=== PATIENT | female | born 1985 | race Caucasian/White ===

== ENCOUNTER 2017-03-14 15:07 | Emergency (ER) | payer MEDICAID, OTHER ==
[~2017-03-14] VITALS: Ht 160 cm; Wt 64.0 kg
[~2017-03-14 15:07] MED LIST: NO HOME MEDS
[2017-03-14] MEDS ORDERED: normal saline 1000ML IV soln IVB ONE (15:40)
[2017-03-14 16:08] LABS: BASOPHILS # (AUTO) 0.1 X10'3 (0-0.2); BASOPHILS % (AUTO) 0.4 % (0-1); EOSINOPHILS # (AUTO) 0.4 X10'3 (0-0.9); EOSINOPHILS % (AUTO) 2.1 % (0-6); HEMATOCRIT 36.7 % (35.0-45.0); HEMOGLOBIN 12.4 g/dl (12.0-16.0); LYMPHOCYTES # (AUTO) 2.1 X10'3 (1.1-4.8); MEAN CORPUSCULAR HEMOGLOBIN 30.5 PG (27.0-31.0); MEAN CORPUSCULAR HGB CONC 33.8 % (33.0-36.5); MEAN CORPUSCULAR VOLUME 90.4 FL (78-98); MEAN PLATELET VOLUME 7.7 FL (7.4-10.4); MONOCYTES # (AUTO) 1.1 X10'3 (0-0.9); MONOCYTES % (AUTO) 5.6 % (2-12); NEUTROPHILS # (AUTO) 15.4 X10'3 (1.8-7.7); NEUTROPHILS % (AUTO) 80.9 % (42-75); PLATELET COUNT 302 X10'3 (140-440); RED BLOOD COUNT 4.06 X10'6 (4.20-5.60); RED CELL DISTRIBUTION WIDTH 13.3 % (11.5-14.5)
[2017-03-14] MEDS ORDERED: normal saline 1000ML IV soln IV ONE (16:20)
[2017-03-14 16:22] LABS: ALANINE AMINOTRANSFERASE 25 U/L (12-78); ALBUMIN 3.6 G/DL (3.4-5.0); ALKALINE PHOSPHATASE 79 IU/L (46-116); ANION GAP 9 (8-16); ASPARTATE AMINO TRANSFERASE 18 U/L (10-37); BILIRUBIN,TOTAL 0.1 MG/DL (0.1-1.0); BLOOD UREA NITROGEN 14 MG/DL (7-18); CALCIUM 9.3 MG/DL (8.5-10.1); CHLORIDE 105 MMOL/L (99-107); GLUCOSE 124 MG/DL (70-104); LIPASE 86 U/L (73-393); POTASSIUM 3.9 MMOL/L (3.5-5.1); SODIUM 139 MMOL/L (135-145); TOTAL CARBON DIOXIDE 25.4 MMOL/L (24-32); TOTAL PROTEIN 7.2 G/DL (6.4-8.2); eGFR 63 ML/MIN
[2017-03-14 16:40] LABS: PLATELET ESTIMATE NORMAL; TOTAL CELLS COUNTED 100
[2017-03-14 17:01] LABS: URINE HCG POSITIVE (NEG)
[2017-03-14 17:02] LABS: CLARITY,URINE Clear (Clear); COLOR,URINE Yellow (Yellow); GLUCOSE, URINE Negative (Neg); KETONES,URINE Negative (Neg); LEUKOCYTE ESTERASE ,URINE Trace (Neg); NITRITES, URINE Positive (Neg); OCCULT BLOOD,URINE Trace (Neg); PROTEIN,URINE Negative (Neg)
[2017-03-14 17:07] LABS: UA COLLECTION TYPE CLN CATCH MIDSTREAM
[2017-03-14 17:10] LABS: BACTERIA,URINE 3+ /HPF (Neg); MUCUS STRANDS FEW /LPF (Neg); RBC,URINE 0-2 /HPF (0-2); SQUAMOUS EPITHELIAL CELL,UR MANY /LPF (FEW); URINE AMPHETAMINE SCREEN POSITIVE (Neg); URINE BARBITUATE SCREEN NEGATIVE (Neg); URINE BENZODIAZEPINES SCREEN NEGATIVE (Neg); URINE CANNABINOID SCREEN POSITIVE (Neg); URINE COCAINE SCREEN NEGATIVE (Neg); URINE METHADONE SCREEN NEGATIVE (Neg); URINE OPIATE SCREEN NEGATIVE (Neg); URINE PHENCYCLIDINE SCREEN NEGATIVE (Neg); WBC,URINE 0-4 /HPF (0-4)
[2017-03-14 19:08] VITALS: BP 104/72
== END 2017-03-14 20:03 | disposition short-term general hospital (02) ==
LOC: ER 15:07
DX: R10.31 Right lower quadrant pain (principal); F12.10 Cannabis abuse, uncomplicated; F15.10 Other stimulant abuse, uncomplicated; R10.32 Left lower quadrant pain; Z33.1 Pregnant state, incidental
CPT/HCPCS: 36415; 71010; 76817; 80053; 80305; 81001; 81025; 83690; 84702; 85025; 86900; 86901; 96360; 96361; 99285; J7030

== ENCOUNTER 2019-03-26 08:37 | Emergency (ER) | payer MEDICAID, OTHER ==
[~2019-03-26] VITALS: Ht 162.6 cm; Wt 76.0 kg
[2019-03-26 09:08] VITALS: BP 175/103
[2019-03-26] MEDS ORDERED: PENI500T2 PO (09:58)
== END 2019-03-26 10:11 | disposition home or self-care (01) ==
LOC: ER 08:38
DX: K08.89 Other specified disorders of teeth and supporting structures (principal); F12.90 Cannabis use, unspecified, uncomplicated; F15.90 Other stimulant use, unspecified, uncomplicated; F10.99 Alcohol use, unspecified with unspecified alcohol-induced disorder; Z79.899 Other long term (current) drug therapy; Y90.9 Presence of alcohol in blood, level not specified
CPT/HCPCS: 99283

== ENCOUNTER 2024-01-22 01:11 | Emergency (ER) | payer MEDICAID, OTHER ==
[~2024-01-22] VITALS: Ht 160 cm; Wt 83.9 kg
[2024-01-22 02:29] VITALS: BP 154/99; PULSE 98; RESP 18; TEMP 97.9; O2SAT 96
== END 2024-01-22 02:30 | disposition home or self-care (01) ==
LOC: ER 01:12
DX: S02.2XXA Fracture of nasal bones, initial encounter for closed fracture (principal); F12.90 Cannabis use, unspecified, uncomplicated; F15.90 Other stimulant use, unspecified, uncomplicated; Y08.89XA Assault by other specified means, initial encounter; Y93.89 Activity, other specified; Y92.89 Other specified places as the place of occurrence of the external cause; Y99.8 Other external cause status
CPT/HCPCS: 21315; 99284

== ENCOUNTER 2024-07-19 18:25 | Emergency (ER) | payer SELFPAY ==
[~2024-07-19] VITALS: Ht 160 cm; Wt 73.6 kg
[2024-07-19 18:57] LABS: BASOPHILS # (AUTO) 0.1 X10'3 (0-0.2); EOSINOPHILS # (AUTO) 0.2 X10'3 (0-0.9); EOSINOPHILS % (AUTO) 2.4 % (0-6); HEMOGLOBIN 13.8 g/dl (12.0-16.0); LYMPHOCYTES # (AUTO) 1.8 X10'3 (1.1-4.8); LYMPHOCYTES % (AUTO) 18.7 % (21-51); MEAN CORPUSCULAR HGB CONC 33.7 g/dL (33.0-36.5); MEAN CORPUSCULAR VOLUME 88.9 FL (78-98); MEAN PLATELET VOLUME 7.6 FL (7.4-10.4); MONOCYTES # (AUTO) 0.8 X10'3 (0-0.9); MONOCYTES % (AUTO) 7.8 % (2-12); NEUTROPHILS # (AUTO) 6.7 X10'3 (1.8-7.7); NEUTROPHILS % (AUTO) 70.1 % (42-75); PLATELET COUNT 328 X10'3 (140-440); RED BLOOD COUNT 4.62 X10'6 (4.20-5.60); RED CELL DISTRIBUTION WIDTH 13.8 % (11.5-14.5); WHITE BLOOD COUNT 9.6 X10'3 (4.5-11.0)
[2024-07-19 19:10] LABS: ALANINE AMINOTRANSFERASE 26 U/L (12-78); ALBUMIN 3.5 G/DL (3.4-5.0); ALKALINE PHOSPHATASE 103 IU/L (46-116); ANION GAP 6 (8-16); ASPARTATE AMINO TRANSFERASE 13 U/L (10-37); BILIRUBIN,TOTAL 0.2 MG/DL (0.1-1.0); BLOOD UREA NITROGEN 15 MG/DL (7-18); BUN/CREATININE RATIO 17.6 (10.0-20.0); CALCIUM 9.1 MG/DL (8.5-10.1); CHLORIDE 105 MMOL/L (99-107); CREATININE 0.85 MG/DL (0.40-0.90); GLUCOSE 92 MG/DL (70-104); LIPASE 30 U/L (16-77); POTASSIUM 4.1 MMOL/L (3.5-5.1); SODIUM 138 MMOL/L (135-145); TOTAL CARBON DIOXIDE 26.9 MMOL/L (24-32); TOTAL PROTEIN 7.1 G/DL (6.4-8.2); eCRCL 72 ML/MIN; eGFR 74 ML/MIN
[2024-07-19] MEDS: OLANZapine **IM** 10 mg inj. IM ONE ×2 (19:31→20:39)
[2024-07-19] MEDS: ketorolac trometh 15mg/ml vial 15 MG/ML ML IM ONE (20:39)
[2024-07-19 21:56] LABS: HCG SERUM QL NEGATIVE
[2024-07-19] MEDS ORDERED: iohexol 300mg/ml 100ml inj. ONE (22:01)
[2024-07-19 23:20] VITALS: TEMP 97.6
[2024-07-20 00:41] LABS: BILIRUBIN,URINE NEGATIVE (Neg); CLARITY,URINE CLEAR (Clear); COLOR,URINE YELLOW (Yellow); GLUCOSE, URINE NEGATIVE (Neg); KETONES,URINE NEGATIVE (Neg); LEUKOCYTE ESTERASE ,URINE NEGATIVE (Neg); NITRITES, URINE NEGATIVE (Neg); OCCULT BLOOD,URINE NEGATIVE (Neg); PROTEIN,URINE NEGATIVE (Neg); UROBILINOGEN,URINE 0.2 E.U/dL (0.2-1.0)
[2024-07-20 00:56] LABS: UA COLLECTION TYPE CLN CATCH MIDSTREAM
[2024-07-20] MEDS ORDERED: AMOX-580 PO (03:02)
[2024-07-20 03:13] VITALS: BP 122/77; PULSE 66; RESP 14; O2SAT 97
[2024-07-20] MEDS: amox tr/potassium clavulanate 875/125mg TAB PO ONE (04:08)
== END 2024-07-20 04:29 | disposition home or self-care (01) ==
LOC: ER 18:25
DX: K80.12 Calculus of gallbladder with acute and chronic cholecystitis without obstruction (principal); G89.29 Other chronic pain; M54.9 Dorsalgia, unspecified; F12.90 Cannabis use, unspecified, uncomplicated; F15.90 Other stimulant use, unspecified, uncomplicated; Z72.89 Other problems related to lifestyle
CPT/HCPCS: 36415; 74177; 76700; 80053; 81003; 83690; 84703; 85025; 96372; 99285; J1885; J3490; Q9967

== ENCOUNTER 2024-08-15 13:14 | Emergency (ER) | payer SELFPAY ==
[~2024-08-15] VITALS: Ht 160 cm; Wt 80.0 kg
[2024-08-15 13:28] VITALS: BP 145/97; PULSE 89; TEMP 97.7; O2SAT 100
[2024-08-15] MEDS ORDERED: ondansetron/PF 4mg/2ml inj IV ONE (14:25)
[2024-08-15] MEDS ORDERED: ketorolac trometh 15mg/ml vial 15 MG/ML ML IV ONE (14:25)
--- NOTE | 2024-08-15 14:30 | Physician Documentation ---
History of Present Illness Chief Complaint: Abdominal Pain Stated Complaint: STOMACH PAIN Time Seen by MD: 13:53 Primary Medical Doctor: None Mode of Arrival: Ambulatory HPI This is a 39-year-old female who presents with right upper quadrant abdominal pain, patient was diagnosed with cholelithiasis on July 19 and was to follow up with a surgeon though has not had a chance to do so yet, patient reports that after being seen in July her pain went away until this morning when it returned. Patient reports no fever or chills and no vomiting or diarrhea however reports feeling of nausea. She reports the pain is worse after eating otherwise no other aggravating or alleviating factors. Medication Reconciliation Allergies: Coded Allergies: No Known Allergies (Unverified , 07/19/24) Miscellaneous Medications Home Med List (No Home Medications), (Reported) Past Medical History Past Medical History: No Pertinent History Past Surgical History: no surgical history Alcohol Use: Occasionally Drug Use: marijuana, methamphetamine Lives In: Home Review of Systems ROS Right upper quadrant pain as stated above in the HPI, otherwise all systems are reviewed and negative. Physical Exam Vital Signs: Temperature: 97.7, Source: Oral, Heart Rate: 89, Respiratory Rate: 15, BP: 145/97, Pulse Oximetry: 100, Weight: 80.000 Physical Exam VITALS: Reviewed and as above. GENERAL: Alert, nontoxic appearing, no apparent distress. RESPIRATORY: No increased work of breathing, no respiratory distress, speaking in full clear sentences. Lung sounds clear in all alvarenga CV: Regular rate and rhythm no murmur GI: Right upper quadrant and tenderness to palpation, other quadrants nontender to palpation, no rebound, no guarding, no ecchymosis Progress Results/Orders Results/Orders Vital Signs 08/15/24 08/15/24 13:28 13:47 Temp 97.7 Pulse 89 Resp 16 15 B/P (MAP) 145/97 Pulse Ox 100 Medical Decision Making Findings This 39-year-old female who was recently diagnosed with cholelithiasis presented with one day of increased right upper quadrant abdominal pain after a period of no pain following her cholelithiasis diagnosis, patient has been instructed to follow up with a surgeon outpatient though has not had a chance to make this appointment yet. Patient had eaten just prior to arrival therefore there was a delay in obtaining ultrasound for evaluation of the gallbladder. Patient was quite painful appearing though nontoxic, patient was medicated for pain and labs drawn, after lab draw patient was requesting to leave due to having patient responsibilities including dogs at home. Discussed with patient the importance of staying for the remainder of her workup and lab resolves as well physical exam is relatively benign and vital signs were stable we can not fully rule out more serious illness. After this discussion the patient did sign out against medical advice. Differential Dx:Considerations: Include: Appendicitis, Cholangitis, Cholelithasis, Gastritis/PUD, Gastroenteritis, Pancreatitis, Urolithiasis, Other (Cholecystitis) Departure Disposition: LEFT AGAINST MEDICAL ADVICE Impression: Primary Impression: Abdominal pain Qualified Codes: R10.11 - Right upper quadrant pain Condition: Guarded Referrals: NO PRIMARY CARE PROVIDER (PCP) Signature Scribe Signature: No scribe Attestation: The note accurately reflects work and decisions made by me.CALEB Villatoro 08/16/24 03:34 RADHA CARMONA August 15, 2024 14:30
[2024-08-15] MEDS: ondansetron 4mg rapidly disintigrating tab PO ONE (15:09)
[2024-08-15 15:10] LABS: BASOPHILS % (AUTO) 0.5 % (0-1); EOSINOPHILS # (AUTO) 0.1 X10'3 (0-0.9); EOSINOPHILS % (AUTO) 1.5 % (0-6); HEMATOCRIT 42.4 % (35.0-45.0); HEMOGLOBIN 14.2 g/dl (12.0-16.0); LYMPHOCYTES # (AUTO) 1.6 X10'3 (1.1-4.8); LYMPHOCYTES % (AUTO) 15.6 % (21-51); MEAN CORPUSCULAR HEMOGLOBIN 29.7 PG (27.0-31.0); MEAN CORPUSCULAR HGB CONC 33.5 g/dL (33.0-36.5); MEAN CORPUSCULAR VOLUME 88.5 FL (78-98); MEAN PLATELET VOLUME 7.8 FL (7.4-10.4); MONOCYTES # (AUTO) 0.7 X10'3 (0-0.9); MONOCYTES % (AUTO) 7.3 % (2-12); NEUTROPHILS # (AUTO) 7.6 X10'3 (1.8-7.7); NEUTROPHILS % (AUTO) 75.1 % (42-75); PLATELET COUNT 284 X10'3 (140-440); RED BLOOD COUNT 4.79 X10'6 (4.20-5.60); RED CELL DISTRIBUTION WIDTH 13.7 % (11.5-14.5); WHITE BLOOD COUNT 10.1 X10'3 (4.5-11.0)
[2024-08-15 15:11] VITALS: RESP 15
[2024-08-15] MEDS: ketorolac trometh 15mg/ml vial 15 MG/ML ML IM ONE (15:11)
[2024-08-15 15:20] LABS: ALANINE AMINOTRANSFERASE 29 U/L (12-78); ALBUMIN 3.5 G/DL (3.4-5.0); ALKALINE PHOSPHATASE 93 IU/L (46-116); ANION GAP 8 (8-16); ASPARTATE AMINO TRANSFERASE 19 U/L (10-37); BILIRUBIN,TOTAL 0.2 MG/DL (0.1-1.0); BLOOD UREA NITROGEN 16 MG/DL (7-18); BUN/CREATININE RATIO 18.4 (10.0-20.0); CALCIUM 8.6 MG/DL (8.5-10.1); CHLORIDE 104 MMOL/L (99-107); CREATININE 0.87 MG/DL (0.40-0.90); GLUCOSE 136 MG/DL (70-104); LIPASE 25 U/L (16-77); POTASSIUM 3.9 MMOL/L (3.5-5.1); SODIUM 137 MMOL/L (135-145); TOTAL CARBON DIOXIDE 24.6 MMOL/L (24-32); eCRCL 70 ML/MIN; eGFR 72 ML/MIN
== END 2024-08-15 15:14 | disposition left against medical advice (07) ==
LOC: ER 13:14
DX: R10.11 Right upper quadrant pain (principal); F12.90 Cannabis use, unspecified, uncomplicated; F15.90 Other stimulant use, unspecified, uncomplicated
CPT/HCPCS: 36415; 80053; 83690; 85025; 96372; 99283; J1885

== ENCOUNTER 2024-08-15 22:50 | Inpatient (IN) | payer OTHER ==
[~2024-08-15] VITALS: Ht 160 cm; Wt 77.0 kg
--- NOTE | 2024-08-15 23:23 | Physician Documentation ---
History of Present Illness ~ Chief Complaint: Abdominal Pain Stated Complaint: ABDOMINAL PAIN Time Seen by MD: 23:20 Primary Medical Doctor: None HPI Patient presents to the emergency room for epigastric pain. She was seen here earlier today for said complaint and left against medical advice before labs had resulted. Patient had personal things to attend to. She returns for continued symptoms. Upon review of old medical records she was diagnosed with gallstones previously with gallbladder wall thickening and placed on outpatient antibiotics. She reportedly felt better and did not have pain until today. Patient endorses pain with eating. Medication Reconciliation Allergies: Coded Allergies: No Known Allergies (Unverified , 07/19/24) Miscellaneous Medications Home Med List (No Home Medications), (Reported) Past Medical History Past Medical History: No Pertinent History Past Surgical History: no surgical history Alcohol Use: Occasionally Drug Use: marijuana, methamphetamine Lives In: Home Review of Systems ROS All review of systems negative except as per HPI Physical Exam Vital Signs: Temperature: 97.0, Source: Temporal, Heart Rate: 77, Respiratory Rate: 18, BP: 111/62, Pulse Oximetry: 97, Weight: 76.980 Oxygen Flow Rate: 0 Physical Exam General: Patient is awake, alert, oriented x4 in no acute distress Head: Normocephalic and atraumatic. Eyes: Conjunctival normal. EOMI. PERRL. ENT: Mucous membranes moist. Neck: Supple, trachea is midline. Chest: Clear to auscultation bilaterally without rales, rhonchi, or wheezes. There is no accessory muscle use or retractions. Cardiac: RRR without murmurs, gallops, or rubs. Abd: Soft, nondistended, epigastric tenderness to palpation without peritonitis Progress Results/Orders Results/Orders Orders - JONAH ABBOTT MD Page Hospitalist (08/15/24 23:58) Fill Out Med Reconciliation (08/15/24 23:58) Culture Blood (08/15/24 23:58) Urinalysis, Cult If Indicated (08/16/24 00:00) Hcg, Ur Ql (08/16/24 00:00) Drug Screen, Urine (08/16/24 00:00) Completed Orders - JONAH ABBOTT MD Piperacillin/Tazo 3.375gm/50ml (Zosyn 3. (08/16/24 00:00) Lacticsepsis (08/15/24 23:58) Medications Received in ER Medications (Trade) Dose Ordered Sig/Thelma Route PRN Reason Start Time Stop Time Status Last Admin Dose Admin Piperacillin/ Tazobactam/ Dextrose 50 ml @ 100 mls/hr ONCE ONCE IV 08/16/24 00:00 08/16/24 00:29 DC 08/16/24 01:56 100 MLS/HR Vital Signs 08/15/24 08/15/24 08/15/24 22:52 23:16 23:18 Temp 97.0 97.0 Pulse 89 77 Resp 16 18 18 B/P (MAP) 135/96 111/62 (78) Pulse Ox 99 97 O2 Flow Rate 0 0 Laboratory Tests Test 08/16/24 00:10 Lactic Acid Level 0.8 Microbiology Date/Time Source Procedure Growth Status 08/16/24 00:22 Blood Arm Right Blood Culture - Preliminary NEGATIVE (LESS THAN 24 HOURS) Resulted Medical Decision Making Findings Patient presented to the emergency room for evaluation of epigastric pain. Ultrasound positive for cholecystitis. We will admit for definitive treatment Departure Admitted to Inpatient Unit: yes, to hospitalist Impression: Primary Impression: Acute cholecystitis Condition: Guarded Referrals: NO PRIMARY CARE PROVIDER (PCP) Signature Scribe Signature: No scribe Attestation: The note accurately reflects work and decisions made by me.Jonah Abbott MD 08/16/24 03:31 JONAH ABBOTT MD August 15, 2024 23:23
[2024-08-16] MEDS ORDERED: potassium Cl 20 mEq SR tablet PO PRN ×2 (00:30)
[2024-08-16] MEDS ORDERED: acetaminophen 325mg tablet PO PRN (00:30)
[2024-08-16] MEDS ORDERED: morphine 2 MG/ML inj. syringe IV PRN ×2 (00:30)
[2024-08-16] MEDS ORDERED: magnesium sulf-water 2g/50mL 50 ML IV PRN (00:30)
[2024-08-16] MEDS ORDERED: magnesium hydroxide 30ml (MOM) UD suspension PO PRN (00:30)
[2024-08-16] MEDS ORDERED: magnesium Cl slow-release 64mg tablet PO PRN (00:30)
[2024-08-16] MEDS ORDERED: magnesium sulf-water 4G/100mL 100 ML IV PRN (00:30)
[2024-08-16] MEDS ORDERED: mag hydrox/Alum hydrox/simeth 30ml oral suspension PO PRN (00:30)
[2024-08-16] MEDS ORDERED: potassium Cl 40MEQ/1/2NS 520ml 520 ML IV PRN (00:30)
[2024-08-16] MEDS ORDERED: ondansetron/PF 4mg/2ml inj IV PRN (00:30)
--- NOTE | 2024-08-16 01:26 | RADIOLOGY REPORT ---
CHEST RADIOGRAPH Indication: possible surgery tomorrow Technique: Single frontal view of the chest was obtained COMPARISON: None FINDINGS: Lines and Tubes: None Lungs: Clear Pleura: No effusion. No pneumothorax. Cardiomediastinal contours: Unremarkable Bones: Unremarkable IMPRESSION: 1. No acute disease.
[2024-08-16] MEDS: piperacillin/tazo 3.375gm/50ml 50 ML IV ONE (01:56)
[2024-08-16] MEDS: normal saline 1000ml 1,000 ML IV SCH (01:56)
--- NOTE | 2024-08-16 02:01 | HISTORY AND PHYSICAL-Residence ---
History & Physical Providers to Resident Creating Document: CAITY FRANCES, PATRICK ~ History of Present Illness Primary Medical Doctor: None Reason for Admit\Complaint: Cholecystitis/gastritis History of Present Illness This is a 39-year-old female with no significant past medical history came to the ER with a chief complaint of abdominal pain. She woke up this morning with the pain, located in the epigastric region, graded 10/10, intermittent, radiating to the back. She 1st had this pain two years ago, since then she has been having pain intermittently, visited ER in 07/28, at the time abdominal ultrasound showed findings suggestive of cholecystitis, the pain resolved and was sent back. This morning she came to the ER with the pain and went back home to take care of some things that came back again. She denies any association of the pain with food. Denies fever, nausea, vomiting. Denies any black color stools or blood in stools. Does not drink alcohol but takes ibuprofen 200 mg four tablets at once, about 5 times a week for headache. Allergies: Coded Allergies: No Known Allergies (Unverified , 07/19/24) Home Medications Home Medications Active Reported No Home Medications (Home Med List) Each Past Medical History Past Medical History No significant past medical history Past Surgical History Surgical History Comment Right fallopian tube ectomy for tubular Family History Family History: FH: cancer MOTHER FH: pancreatic cancer FATHER Past Social History Social History Comment She quit smoking about 3-4 years ago, previously smoked about a pack a day for 15 years Denies any alcohol use She uses marijuana occasionally History of using street drugs, methamphetamine which she smoked about 20 years ago Lives with her friend Smoking: Cigarettes Alcohol Use: Occasionally Drug Use: Marijuana, Methamphetamine Lives In: Home ROS Constitutional: Denies: no symptoms reported, see HPI, chills, diaphoresis, fever, malaise, weakness, other Eyes: Denies: no symptoms reported, see HPI, pain, discharge, blurred vision, double vision, itching, photophobia, redness, tearing, other ENT: Denies: no symptoms reported, see HPI, ear pain, ear bleeding, ear discharge, hearing loss, ear ringing, nose pain, nose bleeding, nose congestion, nose discharge, throat pain, throat swelling, voice change, mouth pain, mouth bleeding, mouth swelling, other Respiratory: Denies: no symptoms reported, see HPI, cough, orthopnea, shortness of breath, SOB with exertion, SOB at rest, stridor, wheezing, hemoptysis, pain with breathing, other Cardiovascular: Denies: no symptoms reported, see HPI, chest pain, left arm pain, diaphoresis, lightheadedness, syncope, edema, palpitations, irregular heart rate, other Gastrointestinal: Reports: abdominal pain Genitourinary: Denies: no symptoms reported, see HPI, burning, discharge, dysuria, frequency, flank pain, hematuria, incontinence, pain, decreased urine output, urgency, other Female Genitalia: Denies: no reported symptoms, see HPI, vaginal discharge, vaginal pain, pelvic pain, abnormal bleeding, dyspareunia, , other Neurological: Denies: no symptoms reported, see HPI, speech problem, headache, dizziness, fainting, tingling, left sided numbness, right sided numbness, left sided weakness, right sided weakness, problems walking, unable to move lower ext, unable to move upper ext, petit mal seizures, tonic-clonic seizures, c ognitive dysfunction, other Musculoskeletal: Denies: no symptoms reported, see HPI, pain, swelling, back p ain, gout, joint pain, joint swelling, muscle pain, muscle swelling, muscle stiffness, neck pain, other Exam Vitals: Vital Signs Date Time Temp Pulse Resp B/P (MAP) Pulse Ox O2 Delivery O2 Flow Rate FiO2 08/16/24 01:47 78 16 128/70 (89) 98 08/15/24 23:18 97.0 0 General: General: Awake and Alert, no acute distress. HEENT: Conjunctiva pink, Sclera clear, Mucus Membranes moist. Neck: Supple without masses and tenderness. Resp: Unlabored. Bilateral lung sounds are clear Heart: Regular Rate and rhythm, normal S1 and S2 without murmur, rub or gallop. Abdomen: Soft, tenderness in the epigastric and right upper quadrant region, Mullins sign positive, no guarding, no rigidity Extremities: No cyanosis,clubbing or edema. Skin: Warm and Dry. Neurology: Cranial nerves 2-12 intact. No focal motor or sensory deficits. Advance Care Planning Advanced Care plannin - 30 Minutes (I spent 17 minutes in discussing various resuscitative measures, the patient chose to be full code.) Additional Plan Assessment This is a 39-year-old female with a significant past medical history came to the ER with a chief complaint of pain in the epigastric region. Mullins sign positive. Chronic NSAIDs use. Patient is being admitted for possible cholecystitis and gastritis. Plan Cholecystitis Gastritis Mullins sign positive Abdominal ultrasound, pending report Abdominal ultrasound on 07/28 showed the gallbladder neck calculus with mild gallbladder wall thickening. Abdominal CT on 07/28 showed calcified stone in the gallbladder with a pericholecystic fluid WBC count, lactic acid in the normal range Started the patient on Zosyn Started on NS@ 100 mL/hr. NPO from midnight for possible cholecystectomy tomorrow Consult surgeon are in the morning Started the patient on Protonix 40 mg b.i.d. for possible gastritis secondary to chronic NSAID use. Code status: Full code DVT prophylaxis: Heparin GI prophylaxis: Pantoprazole Diet: NPO Line/tubes: Peripheral IV line Prognosis: Guarded Caity Frances M.D PGY1 Date of Service: August 16, 2024 Billing Provider: KODY YAO MD Addendum agree with assessment and plan spent 35 minutes in care CAITY FRANCES, RES August 16, 2024 02:01 KODY YAO MD August 16, 2024 03:13
[2024-08-16 02:42] VITALS: BP 125/75; PULSE 69; RESP 14; TEMP 96.3; O2SAT 99
--- NOTE | 2024-08-16 02:48 | RADIOLOGY REPORT ---
Clinical History RUQ Pain Comparison us on 07/20/2024, 75 images. Technique: Standard grayscale images were acquired in multiple planes with additional Doppler interro gation when appropriate. Without Contrast KENIA LANDIN, [id number] Findings: Liver: No mass or ductal dilatation. dense echotexture of the liver. Gallbladder: limit evaluation. small echogenic foci in the gallbladder with gallbladder wall thicken ing measuring up to 4 mm. Trace pericholecystic fluid. Common bile duct: Within normal limits. Right kidney: No kidney stone or hydronephrosis. Pancreas: obscured by bowel gas. Impression: 1. Small echogenic foci in the gallbladder question stones. Gallbladder wall thickening measuring u p to 4 mm. Trace pericholecystic fluid. Positive sonographic Mullins's sign. Findings concerning fo r cholecystitis. Clinical correlation suggested. 2. Coarsened echotexture of the liver suggest steatosis This report was electronically signed by Gian Starks MD on 08/16/2024 2:45:16 AM.
[2024-08-16] MEDS: pantoprazole 40 MG vial IV SCH (03:16)
[2024-08-16 06:00] VITALS: BP 117/71; PULSE 71; RESP 16; TEMP 98.1; O2SAT 99
[2024-08-16] MEDS: piperacillin/tazo 3.375gm/50ml 50 ML IV SCH (07:18)
[2024-08-16] MEDS: docusate sod 100mg capsule PO SCH (07:24)
[2024-08-16 08:00] VITALS: RESP 16; O2SAT 98
[2024-08-16] MEDS ORDERED: K and/or MAG REPLACEMENT MC SCH (08:00)
--- NOTE | 2024-08-16 16:11 | DISCHARGE SUMMARY-Residence ---
Discharge Summary Providers to CC Resident Creating Document: ERAN DAVIS RES ~ Discharge Summary Admission Diagnosis: CHOLECYSTITIS Hospital Course DATE OF ADMISSION: 08/16/2024 DATE OF DISCHARGE: 08/16/2024 Discharge Diagnosis\Comment: Acute cholecystitis Acute gastritis Operations\Procedures: None Consultants: Surgery- Dr. Alexis Complications: None Condition on DC: Stable for transfer Discharge Summary: 39-year-old female patient with no significant past medical history presents to the hospital with complaints of abdominal pain. She has been having symptoms of biliary colic but worsened today morning when she woke up, grade 10 x 10, intermittent radiating to the back. Ultrasound revealed presence of acute cholecystitis. Patient was admitted the hospital for further management. The surgeon was consulted who was agreeable to see the patient later in the afternoon and keep the patient NPO. However, the patient was under the assumption that this is an outpatient procedure and she could leave within couple of hours. It has been explained to the patient in detail regarding the course of the hospitalization and the time for the procedure. She was adamant about leaving and getting evaluated at another facility or at another time due to the requirement of going back to her home and job. She states that she has children and dogs at home and is unable to take days off of work. A letter was offered to her to be able to take time off of work but the patient declined as she was unable to take it. After detailed discussion regarding the risks of leaving the hospital, the patient was still willing to leave against medical advice. Physical exam at discharge: General: Awake and Alert, no acute distress. HEENT: Conjunctiva pink, Sclera clear, Mucus Membranes moist. Neck: Supple without masses and tenderness. Resp: Unlabored. Lungs clear to auscultation bilaterally. Heart: Regular Rate and rhythm, normal S1 and S2 without murmur, rub or gallop. Abdomen: Soft and non tender no organomegaly Extremities: No cyanosis,clubbing or edema. Skin: Warm and Dry. Abdominal ultrasound: 1. Small echogenic foci in the gallbladder question stones. Gallbladder wall thickening measuring up to 4 mm. Trace pericholecystic fluid. Positive sonographic Mullins's sign. Findings concerning for cholecystitis. Clinical correlation suggested. 2. Coarsened echotexture of the liver suggest steatosis *Problems/Diagnosis: (1) Acute cholecystitis Status: Acute Total Time Spent on D/C: Up to 30 Minutes Date of Service: August 16, 2024 Billing Provider: CARI FATIMA MD Common Visit Codes: 10395-TZI/OBS DISCH DAY <30MIN ERAN DAVIS, PATRICK August 16, 2024 16:11 CARI FATIMA MD August 16, 2024 18:56
[2024-08-16] MEDS ORDERED: enoxaparin 40mg/0.4ml syringe SQ SCH (20:00)
== END 2024-08-16 09:40 | disposition left against medical advice (07) | DRG 446 ==
LOC: ER 22:51 → ED HOLD 08-16 00:22 → SUR 3N 08-16 02:44
PROVIDERS: ADMIT Internal Medicine Pulmonary Disease; ATTEND Internal Medicine Pulmonary Disease
DX: K81.0 Acute cholecystitis (principal); K29.00 Acute gastritis without bleeding; Z53.21 Procedure and treatment not carried out due to patient leaving prior to being seen by health care provider; Z87.891 Personal history of nicotine dependence
CPT/HCPCS: 36415; 71045; 76700; 83605; 87040; 87081; 99285; G0378; J2470; J2543; J7030

== ENCOUNTER 2024-09-07 00:04 | Emergency (ER) | payer MEDICAID, OTHER ==
[~2024-09-07] VITALS: Ht 160 cm; Wt 79.9 kg
[2024-09-07 00:07] VITALS: BP 136/93; PULSE 97; RESP 16; TEMP 98; O2SAT 98
== END 2024-09-07 03:13 | disposition left against medical advice (07) ==
LOC: ER 00:05
DX: N99.89 Other postprocedural complications and disorders of genitourinary system (principal); Z53.21 Procedure and treatment not carried out due to patient leaving prior to being seen by health care provider